=== PATIENT | female | born 1960 | race Caucasian/White ===

== ENCOUNTER 2023-06-14 08:47 | Outpatient (AMB) | payer MEDICARE, SELFPAY ==
--- NOTE | 2023-06-14 08:51 | A.OFFVIS_ITS ---
Intake Intake Visit Reasons: fc- Fracture of left lateral malleolus Intake Note: Safia is a 63 year old female who presents today for a evaluation of her left ankle fx, about a month ago. Patient reports having some soreness. Denies numbness and tingling. Allergies Sulfa (Sulfonamide Antibiotics) Allergy (Intermediate, Verified 06/14/23 09:08) Itching HPI fc- Fracture of left lateral malleolus HPI Details 63-year-old female who presents in the o ffice today, as a new patient, for an evaluation of a left ankle pain. She claims to have fractured the ankle about 1 month ago, in 05/2023. While in the office today the patient reports having some soreness. She denies numbness or tingling. Review of Systems Const All systems reviewed & are unremarkable except as noted in HPI and below Physical Exam Const General: cooperative and no acute distress Orientation/consciousness: patient oriented x3 Resp Effort & Inspection: normal respiratory effort and able to speak in complete sentences Cardio Peripheral pulses: Peripheral pulses 2+ throughout Skin General skin exam: no rashes or lesions noted Neuro General: patient oriented x3 Extrem Other: Left ankle: Normal to inspection. No ecchymosis or erythema. Mild edema along the lateral malleolus. No tenderness to palpation lateral malleolus. Able to perform plantarflexion and dorsiflexion. Mild stiffness with pronation and supination. Sensation intact. Pedal pulse intact. Office Procedures Fracture Care Fracture Billing Code: Fracture Billing Code Assessment & Plan Assessment & Plan (1) Fracture of left ankle, lateral malleolus: Code(s): S82.62XA - Displaced fracture of lateral malleolus of left fibula, initial encounter for closed fracture Qualifiers: Encounter type: initial encounter Fracture alignment: nondisplaced Fracture type: closed Qualified Code(s): S82.65XA - Nondisplaced fracture of lateral malleolus of left fibula, initial encounter for closed fracture Plan Ms. Sutton is a 63-year-old female who presents in the office today, as a new patient, for an evaluation of a left ankle pain. She claims to have fractured the ankle about 1 month ago, in 05/2023. While in the office today the patient reports having some soreness. She denies numbness or tingling. The patient presented to the office today in a splint. She was transitioned to a tall walking boot, off the shelf, while in the office today. She may weight bear as tolerated. The patient will participate in physical therapy for gait training while in the boot and gentle ROM while out of the boot. She has no ROM restrictions. She will perform regular skin checks. Follow up will be in 4 weeks with x-rays, or sooner if needed. X-rays of the left ankle which were obtained while in the office today and were reviewed by me, Patricia Anton PA-C, revealed routine healing of a left lateral malleolus fracture. Orders: Orders XR ankle LT min 3V Today M25.579 - Pain in unspecified ankle and joints of unspecified foot Patient Instructions: Scribed for Patricia Anton PA-C by Milly Cantu medical sales associate, on 06/14/2023 at 8:50 am, EST. Coding Level of Care Code New Pt Level 4 (70245) Diagnoses Closed nondisplaced fracture of lateral malleolus of left fibula, initial encounter S82.65XA Encounter type: initial encounter Fracture alignment: nondisplaced Fracture type: closed CPT Codes Fracture Care - Fracture Billing Code: Fracture Billing Code ([id number])
== END 2023-06-14 09:43 | disposition home or self-care (01) ==
PROVIDERS: Visit Provider Physician Assistant
DX: S82.65XA Nondisplaced fracture of lateral malleolus of left fibula, initial encounter for closed fracture (principal)
CPT/HCPCS: 99203

== ENCOUNTER 2023-06-14 09:51 | Outpatient (REF) | payer MEDICARE, SELFPAY ==
--- NOTE | ~2023-06-14 | XR_ITS ---
EXAMINATION: XR ANKLE, LEFT CLINICAL INFORMATION: Ankle pain. COMPARISON: None available. TECHNIQUE: AP, lateral, and mortise views of the left ankle. FINDINGS: There is a minimally displaced horizontal fracture through the lateral malleolus. The ankle mortise appears stable. A small lytic lesion is seen in the tibial metaphysis measuring 6 mm. No other fractures are seen. No erosions. Joint spaces are maintained. No large ankle effusion is seen. Incidental note made of pes planus. XR/XR ankle LT min 3V IMPRESSION: 1. Minimally displaced fracture lateral malleolus. 2. Small lytic lesion in the tibial metaphysis.
== END 2023-06-14 09:52 | disposition home or self-care (01) ==
LOC: HO.HOSX 09:51
PROVIDERS: Visit Provider Physician Assistant
DX: S82.65XA Nondisplaced fracture of lateral malleolus of left fibula, initial encounter for closed fracture (principal)
CPT/HCPCS: 73610; 99202

== ENCOUNTER 2023-07-14 09:44 | Outpatient (AMB) | payer MEDICARE, SELFPAY ==
--- NOTE | 2023-07-14 09:58 | MHC.OFFVIS ---
Intake Intake Visit Reasons: OV- FX of left lateral malleolus Intake Note: Safia is a 63 year old female who presents today for her follow up visit for her left ankle fx, DOI 05/16/23. Patient reports she has not strated P.T howevere she has been walking with her can walker boot. Reports no pain.. Allergies Sulfa (Sulfonamide Antibiotics) Allergy (Intermediate, Verified 07/14/23 09:59) Itching HPI OV- FX of left lateral malleolus HPI Details 63-year-old female who presents in the office today for a follow up of a left ankle lateral malleolus fracture, which occurred in 05/2023. I last saw the patient in the office on 06/14/2023 when she was placed in a tall walking boot to weight bear as tolerated. She was referred to physical therapy to work on gait training while in the boot with no ROM restrictions. The patient reports the ankle have been feeling good. She confirms she has been ambulating with the boot on. She confirms she has not started physical therapy at this time. She reports some tenderness with palpation. She also reports some stiffness in the left ankle. Presents to the office today from rehab facility in a wheelchair. She is accompanied in the office today by a female family member. Review of Systems Const All systems reviewed & are unremarkable except as noted in HPI and below Physical Exam Const General: cooperative, healthy appearing and no acute distress Resp Effort & Inspection: normal respiratory effort and able to speak in complete sentences Cardio Rate: regular rate Peripheral pulses: Peripheral pulses 2+ throughout GI Palpation (GI): Soft to palpation Skin Lesions: no lesions Rashes: no rashes Extrem Other: Left ankle: No ecchymosis, erythema, or edema. Stiffness with dorsiflexion, plantarflexion, inversion, eversion, Sensation intact. Assessment & Plan Assessment & Plan (1) Fracture of left ankle, lateral malleolus: Code(s): S82.62XA - Displaced fracture of lateral malleolus of left fibula, initial encounter for closed fracture Qualifiers: Encounter type: initial encounter Fracture alignment: nondisplaced Fracture type: closed Qualified Code(s): S82.65XA - Nondisplaced fracture of lateral malleolus of left fibula, initial encounter for closed fracture Plan Ms. Sutton is a 63-year-old female who presents in the office today for a follow up of a left ankle lateral malleolus fracture, which occurred in 05/2023. I last saw the patient in the office on 06/14/2023 when she was placed in a tall walking boot to weight bear as tolerated. She was referred to physical therapy to work on gait training while in the boot with no ROM restrictions. The patient reports the ankle have been feeling good. She confirms she has been ambulating with the boot on. She confirms she has not started physical therapy at this time. She reports some tenderness with palpation. She also reports some stiffness in the left ankle. Presents to the office today from rehab facility in a wheelchair. She is accompanied in the office today by a female family member. I would like for the patient to discontinue the use of the walking boot at this time. Physical therapy will decide if the patient is to start walking with a cane or walker. I would also like for her to begin to work on ROM and strengthening. She may weight bear as tolerated with a walker or cane. Follow up will be PRN, or sooner if needed. X-rays of the left ankle which were obtained while in the office today and were reviewed by me, Patricia Anton PA-C, revealed routine healing of a left lateral malleolus fracture Orders: Orders XR ankle LT min 3V Today M25.579 - Pain in unspecified ankle and joints of unspecified foot Patient Instructions: Scribed for Patricia Anton PA-C by Milly Cantu medical cost consultant, on 07/14/2023 at 9:52 am, EST. Coding Level of Care Code Global (71588) Diagnoses Closed nondisplaced fracture of lateral malleolus of left fibula, initial encounter S82.65XA Encounter type: initial encounter Fracture alignment: nondisplaced Fracture type: closed
== END 2023-07-14 10:10 | disposition home or self-care (01) ==
PROVIDERS: Visit Provider Physician Assistant
DX: S82.65XA Nondisplaced fracture of lateral malleolus of left fibula, initial encounter for closed fracture (principal)
CPT/HCPCS: 99213

== ENCOUNTER 2023-07-14 10:56 | Outpatient (REF) | payer MEDICARE, SELFPAY ==
--- NOTE | ~2023-07-14 | XR_ITS ---
EXAMINATION: XR ANKLE, LEFT CLINICAL INFORMATION: Pain and unspecified ankle and joints of unspecified foot. COMPARISON: 06/14/2023 TECHNIQUE: AP, lateral, and mortise views of the left ankle. FINDINGS: Redemonstration of a minimally displaced transverse fracture through the lateral malleolus. The bones are diffusely demineralized. Soft tissue swelling and joint effusion. Fracture line is less conspicuous, suggesting some interval healing. Redemonstration of small 6 mm lytic lesion in the tibial metaphysis. XR/XR ankle LT min 3V IMPRESSION: Redemonstration of a minimally displaced transverse fracture through the lateral malleolus. Fracture line is less conspicuous, suggesting some interval healing.
== END 2023-07-14 10:57 | disposition home or self-care (01) ==
LOC: HO.HOSX 10:56
PROVIDERS: Visit Provider Physician Assistant
DX: M25.572 Pain in left ankle and joints of left foot (principal); S82.65XA Nondisplaced fracture of lateral malleolus of left fibula, initial encounter for closed fracture; X58.XXXA Exposure to other specified factors, initial encounter; Y93.9 Activity, unspecified; Y92.9 Unspecified place or not applicable; Y99.9 Unspecified external cause status
CPT/HCPCS: 73610; 99212